=== PATIENT | female | born 1980 | race Caucasian/White ===

== ENCOUNTER → 2021-06-06 | Outpatient (CLI) | payer OTHER | LOC: ULTRA 06-03 15:29 | PROVIDERS: ATTEND Otolaryngology | DX: E04.2 Nontoxic multinodular goiter (principal) ==

== ENCOUNTER → 2021-06-22 | Outpatient (CLI) | payer OTHER ==
--- NOTE | 2021-06-24 13:08 | PATH ---
[facility] [address] [place] [address] PATHOLOGY RPT PROCEDURE Name: JIAN LARA Room #: REG REBEKAH Johnson.#: [id number] Admission: 06/22/21 Date of : 82 Discharge: Report #: [id number] Path Case #: [id number] Note [facility] Accession Number: [id number] TESTS RESULT FLAG UNITS REF RANGE LAB Clinician Provided Cytology Information No. of containers..01 Other (Miscellaneous) Source: ISTHMUS THYROID DIAGNOSIS: ISTHMUS THYROID NEGATIVE FOR MALIGNANT CELLS. B[place]ESDA CATEGORY II. SPECIMEN CONSISTS OF BENIGN FOLLICULAR CELLS, HEMOSIDERIN-LADEN MACROPHAGES, COLLOID, AND BLOOD. THIS PATTERN IS CONSISTENT WITH A COLLOID NODULE. COLLOID IS PRESENT. RED BLOOD CELLS ARE PRESENT. THIS INTERPRETATION INCLUDES EVALUATION OF A CELL BLOCK. Pathologist ICD10: 02 E04.1 Signed out by: Nimco Duarte MD, Pathologist NPI- [id number] Performed by: Alphonse Townsend, Automotive Service Director ([facility]) Gross description: 01 27ML, CLEAR, PINK /LCS 06/23/2021 1829 Local FLAG LEGEND: L-Low Normal,H-High Normal,LL-Alert Low,HH-Alert High <-Panic Low,>-Panic High,A-Abnormal,AA-Critical Abnormal Performed at: [address] [place] [address] Sandeep Borja MD, [address] [place] [id number] [address] [address] Yamil Duarte MD, Specimen Comment: A courtesy copy of this report has been sent to [phone] Specimen Comment: [id number] Specimen Comment: Report sent to Performed at: [address], [place], [place] [id number] [address] [address] PATHOLOGY RPT PROCEDURE Name: JIAN LARA Room #: JOSIAH Cotto#: [id number] Admission: 06/22/21 Date of : 82 Discharge: Report #: [id number] Path Case #: [id number] MD Sandeep Borja PA Phone: [phone]
== END | disposition home or self-care (01) ==
LOC: ULTRA 11:00
PROVIDERS: ATTEND Otolaryngology
DX: E04.1 Nontoxic single thyroid nodule (principal)

== ENCOUNTER 2021-09-04 11:07 | Emergency (ER) | payer OTHER ==
[~2021-09-04] VITALS: Ht 149.9 cm; Wt 107.0 kg
[2021-09-04 11:10] VITALS: BP 180/105
[2021-09-04] MEDS ORDERED: MEDROLDOSEPACK PO (11:32)
== END 2021-09-04 12:00 | disposition home or self-care (01) ==
LOC: ER 11:07
DX: H92.02 Otalgia, left ear (principal); M19.90 Unspecified osteoarthritis, unspecified site; Z90.89 Acquired absence of other organs; Z88.8 Allergy status to other drugs, medicaments and biological substances; Z88.5 Allergy status to narcotic agent